=== PATIENT | male | born 1930 | race Caucasian/White ===

== ENCOUNTER 2017-09-05 16:24 | Inpatient (IN) | payer MEDICARE ==
[~2017-09-05] VITALS: Ht 172.7 cm; Wt 62.7 kg
--- NOTE | ~2017-09-05 | CN ---
PATIENT NAME:HALEIGH HARDY MEDICAL RECORD: [id number] : 32 LOCATION:D. D.[id number] ADMIT DATE: 09/05/17 ACCOUNT: [id number] CONSULTING PHYSICIAN: KAYLEEN SMITH MD REFERRING PHYSICIAN: EDMOND SINGH MD DATE OF CONSULTATION: 09/06/2017 CARDIOLOGY CONSULT DIAGNOSES: 1. Rhabdo. 2. Elevated troponin. 3. Frequent falls. 4. Parkinson's. HISTORY: Mr. Steele has frequent falls. He fell and was on the floor for quite sometime. He was admitted after this. He does have an elevated CK; however, his troponin is barely elevated at 0.072. He denies any chest pain or chest discomfort. His EKG is with no changes. He adamantly does not want any cardiac workup. He wants to only go home. He does not have any cardiac history. PHYSICAL EXAMINATION: GENERAL APPEARANCE: Well-nourished, well-developed, appears stated age. Level of distress, comfortable. PSYCHIATRIC: Mental status, alert, normal affect. Orientation, oriented to time, place and person. EYES: Lids and conjunctiva, noninjected. No discharge, no pallor. ENT: Lips, teeth, gums, normal dentition. Oropharynx, no cyanosis, no pallor. NECK: Carotid arteries, bilateral normal upstroke, no bruits, no thrills. JUGULAR VEINS: No jugular venous pressure or distention. CERVICAL LYMPH NODES: Nontender, nonenlarged. THYROID: Not enlarged. Nontender. No nodules. LUNGS: Respiratory effort, unlabored. CHEST: Normal curvature. No thoracic deformity. No chest wall tenderness. Percussion, resonant. Auscultation, clear. No wheezes, no rales, no rhonchi. CARDIOVASCULAR: Precordial exam, nondisplaced. No heaves or pericardial thrills. Rate and rhythm, regular. Heart sounds, normal S1, normal S2. No S3, no gallop, no rub. Systolic murmur, not heard. Diastolic murmur, not heard. EXTREMITIES: No cyanosis, no edema. Peripheral pulses, full and equal in all extremities, except as noted. No bruits appreciated. ABDOMEN: Soft, nondistended. Normal aorta. No bruit. Nontender. No masses. Liver, nontender, no hepatomegaly. Spleen, nontender, no splenomegaly. MUSCULOSKELETAL: No joint tenderness. No joint swelling. No erythema. NEUROLOGICAL: Normal gait, normal strength, normal tone. SKIN: Warm and dry. OVERALL IMPRESSION: Elevated CK, CK-MB, and troponin. Difficult to say if this is just secondary to the fall and the rhabdo. He very well may have some underlying cardiac problems, but he does not want any workup done from a cardiac standpoint. Heart rate and blood pressure are optimal. He is not having any heart failure symptomatology. No anginal symptomatology. At this time, no other cardiac workup or treatment will be necessary. TRANSINT:[id number] Voice Confirmation ID: [id number] DOCUMENT ID: [id number] CONSULT REPORT [id number] HALEIGH HARDY JEFFREY MD CC: [id number] DICTATION DATE: 09/06/171137 MANAGER NON PROFIT: 09/06/17 1626 ADM IN [facility] [address] [id number]
[2017-09-05 18:28] LABS: BASOPHILS 0.1 % (0-2); EOSINOPHILS 0 % (0-7); HEMATOCRIT 40.7 % (42.0-54.0); HEMOGLOBIN 13.7 g/dL (13.5-17.5); IMMATURE GRANULOCYTES 0.2 % (0-5); LYMPHOCYTES 8.1 % (15-50); MCHC 33.7 g/dL (31.0-37.0); MCV 83.1 fL (80.0-100.0); MEAN PLATELET VOLUME 10.5 fL (7.4-10.4); MONOCYTES 12.2 % (2-11); NEUTROPHILS 79.4 % (40-80); PLATELET COUNT 200 10x3/uL (130-400); RDW 14.6 % (11.5-14.5); WBC 12.9 10x3/uL (4.8-10.8)
[2017-09-05 18:36] LABS: INR 1.33 (0.85-1.17)
[2017-09-05 18:43] LABS: ALBUMIN 3.6 g/dL (3.4-5.0); ALKALINE PHOSPHATASE 96 U/L (46-116); ALT (SGPT) 26 U/L (10-68); BILIRUBIN - TOTAL 1.01 mg/dL (0.2-1.3); CALC OSMOLALITY 290 mosm/kg (275-300); CALCIUM 9.1 mg/dL (8.5-10.1); CARBON DIOXIDE 26.7 mmol/L (21.0-32.0); CHLORIDE - SERUM 104 mmol/L (98-107); CREATININE - SERUM 1.1 mg/dL (0.6-1.3); GLUCOSE 103 mg/dL (74-106); POTASSIUM - SERUM 4.1 mmol/L (3.5-5.1); PROTEIN - SERUM 7.3 g/dL (6.4-8.2); SODIUM 141 mmol/L (136-145); UREA NITROGEN 40 mg/dL (7-18); eGFR NON AFRICAN AMERICAN 67 mL/min (90-120)
[2017-09-05 19:20] LABS: CKMB 51.6 U/L (0.0-3.6); MAGNESIUM - SERUM 1.9 mg/dL (1.8-2.4); PRO BNP 1120 pg/mL (0-450)
[2017-09-05 19:21] LABS: CREATINE KINASE 4680 UL (21-232)
[2017-09-05 19:26] LABS: TROPONIN-I 0.106 ng/mL (0.000-0.060)
[2017-09-05 20:09] LABS: APPEARANCE HAZY (CLEAR); BILIRUBIN NEGATIVE (NEGATIVE); COLOR YELLOW (YELLOW); GLUCOSE NEGATIVE (NEGATIVE); KETONE SMALL mg/dL (NEGATIVE); NITRITE NEGATIVE (NEGATIVE); PROTEIN TRACE mg/dL (NEGATIVE); UROBILINOGEN NORMAL (NORMAL)
[2017-09-05 20:12] LABS: AMORPHOUS SEDIMENT >1+ /lpf (NONE SEEN); BACTERIA MODERATE /hpf (NONE SEEN); EPITHELIAL CELLS 0-5 /hpf (0-5); RED CELLS - URINE 0-5 /hpf (0-5); WHITE CELLS - URINE 0-5 /hpf (0-5)
[2017-09-05 22:19] VITALS: BP 148/70; Ht 172.7 cm; Wt 62.7 kg
[2017-09-05 22:47] VITALS: BP 148/70
[2017-09-05] MEDS ORDERED: BAYER CHEWABLE81 MG PO ×2 (22:58→22:59)
[2017-09-05] MEDS ORDERED: SINEMET 25-1001 EACH PO (23:00)
[2017-09-05 23:25] LABS: CKMB 38.1 U/L (0.0-3.6); CREATINE KINASE 4325 UL (21-232)
[2017-09-05 23:26] LABS: TROPONIN-I 0.094 ng/mL (0.000-0.060)
[2017-09-06] VITALS: BP 146/77
[2017-09-06 06:07] LABS: CKMB 21.2 U/L (0.0-3.6)
[2017-09-06 06:10] LABS: CREATINE KINASE 3236 UL (21-232); TROPONIN-I 0.072 ng/mL (0.000-0.060)
[2017-09-06 09:20] VITALS: BP 148/77
[2017-09-06 11:43] VITALS: BP 133/68
[2017-09-06 16:20] VITALS: BP 128/66
[2017-09-06 20:00] VITALS: BP 133/70
[2017-09-07] VITALS: BP 144/74
[2017-09-07 04:00] VITALS: BP 174/78
[2017-09-07 05:17] LABS: CKMB 4.1 U/L (0.0-3.6)
[2017-09-07 05:20] LABS: CREATINE KINASE 1474 UL (21-232)
[2017-09-07 08:20] VITALS: BP 99/70
== END 2017-09-07 11:59 | disposition home or self-care (01) | DRG 558 ==
LOC: D.ER 16:24 → D.M2 20:30
PROVIDERS: Family Medicine; Nurse Practitioner Family
DX: M62.82 Rhabdomyolysis (principal); R79.89 Other specified abnormal findings of blood chemistry; W18.30XA Fall on same level, unspecified, initial encounter; Y92.009 Unspecified place in unspecified non-institutional (private) residence as the place of occurrence of the external cause; G20 Parkinson's disease; S00.03XA Contusion of scalp, initial encounter; Z91.81 History of falling; Z87.891 Personal history of nicotine dependence

== ENCOUNTER 2018-06-05 17:01 | Emergency (ER) | payer MEDICARE ==
[~2018-06-05] VITALS: Ht 172.7 cm; Wt 66.8 kg
[~2018-06-05 17:01] MED LIST: BAYER CHEWABLE81 MG PO; SINEMET 25-1001 EACH PO
[2018-06-05 17:04] VITALS: Ht 172.7 cm; Wt 66.8 kg
[2018-06-05 18:11] LABS: BASOPHILS 0.1 % (0-2); EOSINOPHILS 0.1 % (0-7); HEMATOCRIT 40.5 % (42.0-54.0); HEMOGLOBIN 13.8 g/dL (13.5-17.5); IMMATURE GRANULOCYTES 0.2 % (0-5); LYMPHOCYTES 5.8 % (15-50); MCH 28.3 pg (26.0-34.0); MCHC 34.1 g/dL (31.0-37.0); MCV 83.2 fL (80.0-100.0); MEAN PLATELET VOLUME 10.9 fL (7.4-10.4); MONOCYTES 12.1 % (2-11); NEUTROPHILS 81.7 % (40-80); PLATELET COUNT 197 10x3/uL (130-400); RBC 4.87 10x6/uL (4.20-6.10); RDW 14.5 % (11.5-14.5); WBC 14.1 10x3/uL (4.8-10.8)
[2018-06-05 18:24] LABS: ALBUMIN 3.7 g/dL (3.4-5.0); ANION GAP 12.4 mmol/L (8-16); BILIRUBIN - TOTAL 0.7 mg/dL (0.2-1.3); CALCIUM 9.4 mg/dL (8.5-10.1); CARBON DIOXIDE 27.8 mmol/L (21.0-32.0); CREATININE - SERUM 1.1 mg/dL (0.6-1.3); POTASSIUM - SERUM 4.2 mmol/L (3.5-5.1); PROTEIN - SERUM 7.9 g/dL (6.4-8.2)
[2018-06-05 19:39] LABS: APPEARANCE CLEAR (CLEAR); COLOR YELLOW (YELLOW); GLUCOSE NEGATIVE (NEGATIVE); KETONE SMALL mg/dL (NEGATIVE); NITRITE NEGATIVE (NEGATIVE); PROTEIN 2+ mg/dL (NEGATIVE); UROBILINOGEN NORMAL (NORMAL)
[2018-06-05 19:40] LABS: BACTERIA FEW /hpf (NONE SEEN); BILIRUBIN NEGATIVE (NEGATIVE); EPITHELIAL CELLS RARE /hpf (0-5); RED CELLS - URINE RARE /hpf (0-5); WHITE CELLS - URINE RARE /hpf (0-5)
[2018-06-05 21:17] VITALS: BP 178/85
== END 2018-06-05 21:14 | disposition home or self-care (01) ==
LOC: D.ER 17:01
PROVIDERS: Family Medicine
DX: G20 Parkinson's disease (principal); R79.89 Other specified abnormal findings of blood chemistry; W18.30XA Fall on same level, unspecified, initial encounter; Y93.89 Activity, other specified; Y92.099 Unspecified place in other non-institutional residence as the place of occurrence of the external cause; D72.829 Elevated white blood cell count, unspecified

== ENCOUNTER 2019-10-10 09:25 | Emergency (ER) | payer MEDICARE ==
[2019-09-03 18:27] VITALS: Ht 172.7 cm; Wt 68.2 kg
[~2019-10-10] VITALS: Ht 172.7 cm; Wt 68.2 kg
[2019-10-10 09:56] VITALS: BP 117/60
== END 2019-10-10 11:39 | disposition home or self-care (01) ==
LOC: D.ER 09:25
DX: S00.03XA Contusion of scalp, initial encounter (principal); W19.XXXA Unspecified fall, initial encounter; Z95.0 Presence of cardiac pacemaker